=== PATIENT | female | born 1975 | race Caucasian/White ===

== ENCOUNTER → 2019-12-17 14:06 | Outpatient (CLI) | payer OTHER, MEDICAID, SELFPAY ==
[2019-12-17 14:40] LABS: Add Manual Diff / Slide Review NO; Basophils Absolute Auto 0 /uL (0-100); Basophils Percent Auto 0.8 % (0-2); Eosinophils Absolute Auto 0 /uL (0-450); Eosinophils Percent Auto 0.9 % (2-4); Hematocrit 37.4 % (36-46); Hemoglobin 12.9 g/dL (12.0-16.0); Lymphocytes Absolute Auto 1400 /uL (1100-4500); Lymphocytes Percent Auto 36.9 % (25-40); Mean Corpuscular HGB Conc 34.6 % (30-36); Mean Corpuscular Hemoglobin 34.2 PG (26-34); Mean Corpuscular Volume 98.9 fL (80-100); Monocytes Absolute Auto 600 /uL (0-900); Monocytes Percent Auto 14.1 % (3-14); Neutrophils Absolute Auto 1800 /uL (1500-7000); Neutrophils Percent Auto 47.3 % (50-75); Platelet Count 156 X10^3/uL (150-400); Red Blood Cell Count 3.79 X10^6/uL (4.0-5.2); Red Cell Distribution Width 13.6 % (11.6-14.8); White Blood Cell Count 3.9 X10^3/uL (4.5-11.0)
[2019-12-17 14:47] LABS: UR Morphine/Opiate cutoff 300 Negative (Negative); Ur Creatinine Normal (Normal); Ur Specific Gravity Normal (Normal); Urine Amphetamines Negative (Negative); Urine Barbiturates Negative (Negative); Urine Benzodiazepines Negative (Negative); Urine Cocaine Negative (Negative); Urine MDMA Negative (Negative); Urine Methadone Negative (Negative); Urine Methamphetamines Negative (Negative); Urine Oxycodone Negative (Negative); Urine Phencyclidine Negative (Negative); Urine Tetrahydrocannabinol Negative (Negative); Urine Tricyclic Antidepressant Negative (Negative); Urine pH Normal (Normal)
[2019-12-17 14:51] LABS: Alanine Aminotransferase 25 IU/L (<35); Albumin 4.6 g/dL (3.5-5.0); Albumin Globulin Ratio 1.6 (1.0-2.8); Alkaline Phosphatase 75 U/L (38-126); Aspartate Aminotransferase 56 IU/L (14-36); BUN Creatinine Ratio 5.3 (6-22); Bilirubin Total 0.6 mg/dL (0.2-1.3); Blood Urea Nitrogen 4 mg/dL (7-17); Calcium 10.4 mg/dL (8.4-10.2); Carbon Dioxide 28 mmol/L (22-32); Chloride 100 mmol/L (98-107); Creatine Kinase 67 U/L (30-135); Estimated Glomerular Filt Rate > 60.0 mL/min (>60); Globulin 2.9 g/dL (1.7-4.1); Glucose 103 mg/dL (70-100); HEMOLYSIS < 15 (0-50); Potassium 3.8 mmol/L (3.4-5.1); Sodium 135 mmol/L (137-145); Total Protein 7.5 g/dL (6.3-8.2)
[2019-12-17 15:20] LABS: Microalbumi Creatinin Ratio Ur 11.7 ug/mg CR (<30); Microalbumin Urine Random < 0.6 mg/dL (0-1.6)
[2019-12-17 16:09] LABS: Urine N gonorrhoeae NOT DETECTED
[2019-12-17 16:39] LABS: Urine Chlamydia NOT DETECTED
[2019-12-18 03:07] LABS: RPR Screen Non Reactive (Non Reactive)
[2019-12-18 03:38] LABS: HBsAg Screen Negative (Negative); Hepatitis A Antibody IgM Negative (Negative); Hepatitis B Core Antibody IgM Negative (Negative); Hepatitis C Antibody <0.1 s/co ratio (0.0-0.9)
[2019-12-18 08:08] LABS: HIV Ag/Ab, 4th Gen Non Reactive (Non Reactive)
== END ==
PROVIDERS: PCP Family Medicine; Referring Provider Family Medicine; Visit Provider Family Medicine
DX: Z13.1 Encounter for screening for diabetes mellitus (principal); D64.9 Anemia, unspecified; F17.200 Nicotine dependence, unspecified, uncomplicated; F19.90 Other psychoactive substance use, unspecified, uncomplicated; M62.82 Rhabdomyolysis; N28.9 Disorder of kidney and ureter, unspecified; R79.89 Other specified abnormal findings of blood chemistry; Z72.51 High risk heterosexual behavior
CPT/HCPCS: 36415; 80053; 80074; 80305; 82043; 82550; 82570; 85025; 86592; 87389; 87491; 87591

== ENCOUNTER → 2021-09-04 15:40 | Outpatient (CLI) | payer OTHER, MEDICAID, SELFPAY | PROVIDERS: PCP Family Medicine; Visit Provider Nurse Practitioner Family | DX: R30.0 Dysuria (principal) | CPT/HCPCS: 87086 ==

== ENCOUNTER 2021-09-04 16:18 | Emergency (ER) | payer OTHER, MEDICAID, SELFPAY ==
[2021-09-04] VITALS (17 sets, daily range): BP systolic 103–128; BP diastolic 66–79; PULSE 93–106; RESP 16–23; TEMP 37.4–39.4; O2SAT 95–100; BMI 22.1
--- NOTE | 2021-09-04 16:53 | ED.GENADULT ---
HPI - General Adult <Man Elizalde DO - Last Filed: 09/05/21 07:17> General Chief complaint: Urogenital-Female Stated complaint: KIDNEY PAIN UTI FEVER Time Seen by Provider: 09/04/21 16:41 Source: patient Mode of arrival: Wheelchair History of Present Illness HPI narrative: Patient is a 46-year-old female. Is here for evaluation of 3-4 days of burning with urination and frequency in right-sided flank pain. Is also having body aches and nausea. She has never had a urinary tract infection in the past. She states that she does have a new sexual partner over the past month. She denies any vaginal discharge. No vomiting. Was sent from the walk-in clinic for concerns of pyelonephritis. Related Data Previous Rx's Medication Instructions Recorded fluticasone propionate 110 2 puff INHALATION BID #12 gram 01/06/20 mcg/actuation HFA aerosol inhaler (Flovent HFA) mupirocin 2 % topical ointment 1 applic TOPICAL TID #30 g 05/01/20 triamcinolone acetonide 0.1 % 1 applic TOPICAL TID #80 g 05/08/20 topical cream permethrin 5 % topical cream See Rx Instructions TOPICAL ONCE 05/09/20 #120 g ondansetron 4 mg disintegrating 4 mg PO TID-QID PRN #10 tab 09/04/21 tablet oxycodone 5 mg tablet 5 mg PO Q4-6H PRN #10 tab 09/04/21 sulfamethoxazole 800 1 tab PO BID 14 Days #28 tab 09/04/21 mg-trimethoprim 160 mg tablet (Bactrim DS) Allergies Allergy/AdvReac Type Severity Reaction Status Date / Time lorazepam [From Ativan] Allergy Severe Anaphylaxis Verified 09/04/21 16:52 Penicillins Allergy Severe Anaphylaxis Verified 09/04/21 16:52 bacitracin Allergy Unknown Verified 09/04/21 16:51 [From Neosporin ([id number])] neomycin Allergy Unknown Verified 09/04/21 16:51 [From Neosporin ([id number])] polymyxin B Allergy Unknown Verified 09/04/21 16:51 [From Neosporin ([id number])] Review of Systems <Man Elizalde DO - Last Filed: 09/05/21 07:17> Review of Systems ROS Unobtainable: All systems reviewed & are unremarkable except as noted in HPI and below Patient History <Man Elizalde DO - Last Filed: 09/05/21 07:17> Medical History Asthma Skin rash Family History (Updated 01/11/20 @ 08:44 by Sonia Arriaga MD) Father Cancer Hypertension Grandfather Cancer Grandmother Cancer Mother Age: 63 Hepatitis C Cancer Grandfather Cancer Heart disease Grandmother Diabetes mellitus Hypertension Social History marital status: unmarried,single caregiver/support person: No Smoking Status: Current every day smoker quit status: not considering quitting second hand exposure: Yes alcohol intake: current Smoking Status: Current every day smoker alcohol intake frequency: 0-2 drinks per day Substance Use Type: does not use Exam <Man Elizalde DO - Last Filed: 09/05/21 07:17> Initial Vital Signs Initial Vital Signs: Vital Signs Temperature 101 F H 09/04/21 16:30 Pulse Rate 106 H 09/04/21 16:30 Respiratory Rate 20 09/04/21 16:30 Blood Pressure 128/78 09/04/21 16:30 Pulse Oximetry 96 09/04/21 16:30 Const General: cooperative, healthy appearing and comfortable HENMT Head: normal to inspection and normocephalic Resp Effort & Inspection: normal respiratory effort Auscultation: clear to auscultation bilaterally Cardio Rate: tachycardic Rhythm: regular rhythm GI Palpation: soft and tender Back/Spine/Pelvis Back: No CVA tenderness Other: Tenderness to palpation right lower paraspinal Skin General: no rashes or lesions noted Neuro General: patient alert, patient awake, patient oriented x3, gait normal and moves all extremities Cognition: normal cognition Speech: speech normal Gait: normal gait Motor: muscle tone normal throughout Extrem General: normal to inspection and capillary refill normal Psych Appearance: grossly normal and well kempt <Reed Gant DO - Last Filed: 09/04/21 22:35> Initial Vital Signs Initial Vital Signs: Vital Signs Temperature 101 F H 09/04/21 16:30 Pulse Rate 106 H 09/04/21 16:30 Respiratory Rate 20 09/04/21 16:30 Blood Pressure 128/78 09/04/21 16:30 Pulse Oximetry 96 09/04/21 16:30 Scores <Man Elizalde DO - Last Filed: 09/05/21 07:17> GCS [place] coma scale eye opening: Spontaneous [place]abel[place] coma scale verbal response: Orientated [place]abela coma scale motor response: Obey commands Anabela coma scale total score: 15 <Reed Gant DO - Last Filed: 09/04/21 22:35> GCS [place] coma scale total score: 15 Course <Man Elizalde DO - Last Filed: 09/05/21 07:17> Orders Ordered: Discontinued Medications Acetaminophen (Acetaminophen 325 Mg Tablet) 650 mg PO NOW ONE Stop: 09/04/21 17:04 Last Admin: 09/04/21 17:20 Dose: 650 mg Documented by: JAMILA Hydrocodone Bitart/Acetaminophen (Hydrocodone/Acet 5/325 Prepack) 1 bottle MISC SEEINSTR ONE Stop: 09/04/21 21:35 Last Admin: 09/04/21 21:45 Dose: 1 bottle Documented by: SUNDAY Sodium Chloride (Normal Saline 0.9%) 1,000 mls @ 1,000 mls/hr IV BOLUS ONE Stop: 09/04/21 17:46 Last Infusion: 09/04/21 18:58 Dose: 0 mls/hr Documented by: Admin: 09/04/21 17:20 Dose: 1,000 mls/hr Documented by: JAMILA Ceftriaxone Sodium 1,000 mg/ (Sodium Chloride) 100 mls @ 200 mls/hr IV NOW ONE Stop: 09/04/21 17:04 Last Infusion: 09/04/21 18:43 Dose: 0 mls/hr Documented by: Admin: 09/04/21 17:19 Dose: 200 mls/hr Documented by: JAMILA Ondansetron HCl (Ondansetron 4 Mg Odt Prepack) 1 bottle MISC SEEINSTR ONE Stop: 09/04/21 21:35 Last Admin: 09/04/21 21:45 Dose: 1 bottle Documented by: SUNDAY Vital Signs Vital signs: Vital Signs - 8 hr 09/04/21 16:30 09/04/21 17:20 09/04/21 17:45 Temperature 101 F H 103 F H Pulse Rate 106 H 103 H Respiratory Rate 20 20 Blood Pressure 128/78 Pulse Oximetry 96 99 09/04/21 17:46 09/04/21 18:00 09/04/21 18:30 Temperature Pulse Rate 104 H 99 H 103 H Respiratory Rate 16 21 23 Blood Pressure 112/79 119/78 117/66 Pulse Oximetry 99 100 95 09/04/21 18:47 09/04/21 19:00 09/04/21 19:01 Temperature Pulse Rate 102 H 104 H 104 H Respiratory Rate 22 Blood Pressure 103/73 112/66 Pulse Oximetry 99 98 98 09/04/21 19:07 09/04/21 19:30 09/04/21 20:00 Temperature 99.4 F Pulse Rate 93 H 93 H Respiratory Rate 21 Blood Pressure Pulse Oximetry 100 09/04/21 20:30 09/04/21 21:00 09/04/21 21:30 Temperature Pulse Rate 93 H 97 H 96 H Respiratory Rate 20 Blood Pressure Pulse Oximetry 09/04/21 21:34 09/04/21 21:46 Temperature Pulse Rate 100 H Respiratory Rate Blood Pressure 117/73 Pulse Oximetry <Reed Gant DO - Last Filed: 09/04/21 22:35> Orders Ordered: Discontinued Medications Acetaminophen (Acetaminophen 325 Mg Tablet) 650 mg PO NOW ONE Stop: 09/04/21 17:04 Last Admin: 09/04/21 17:20 Dose: 650 mg Documented by: JAMILA Hydrocodone Bitart/Acetaminophen (Hydrocodone/Acet 5/325 Prepack) 1 bottle MISC SEEINSTR ONE Stop: 09/04/21 21:35 Last Admin: 09/04/21 21:45 Dose: 1 bottle Documented by: SUNDAY Sodium Chloride (Normal Saline 0.9%) 1,000 mls @ 1,000 mls/hr IV BOLUS ONE Stop: 09/04/21 17:46 Last Infusion: 09/04/21 18:58 Dose: 0 mls/hr Documented by: Admin: 09/04/21 17:20 Dose: 1,000 mls/hr Documented by: JAMILA Ceftriaxone Sodium 1,000 mg/ (Sodium Chloride) 100 mls @ 200 mls/hr IV NOW ONE Stop: 09/04/21 17:04 Last Infusion: 09/04/21 18:43 Dose: 0 mls/hr Documented by: Admin: 09/04/21 17:19 Dose: 200 mls/hr Documented by: JAMILA Ondansetron HCl (Ondansetron 4 Mg Odt Prepack) 1 bottle MISC SEEINSTR ONE Stop: 09/04/21 21:35 Last Admin: 09/04/21 21:45 Dose: 1 bottle Documented by: SUNDAY Vital Signs Vital signs: Vital Signs - 8 hr 09/04/21 16:30 09/04/21 17:20 09/04/21 17:45 Temperature 101 F H 103 F H Pulse Rate 106 H 103 H Respiratory Rate 20 20 Blood Pressure 128/78 Pulse Oximetry 96 99 09/04/21 17:46 09/04/21 18:00 09/04/21 18:30 Temperature Pulse Rate 104 H 99 H 103 H Respiratory Rate 16 21 23 Blood Pressure 112/79 119/78 117/66 Pulse Oximetry 99 100 95 09/04/21 18:47 09/04/21 19:00 09/04/21 19:01 Temperature Pulse Rate 102 H 104 H 104 H Respiratory Rate 22 Blood Pressure 103/73 112/66 Pulse Oximetry 99 98 98 09/04/21 19:07 09/04/21 19:30 09/04/21 20:00 Temperature 99.4 F Pulse Rate 93 H 93 H Respiratory Rate 21 Blood Pressure Pulse Oximetry 100 09/04/21 20:30 09/04/21 21:00 09/04/21 21:30 Temperature Pulse Rate 93 H 97 H 96 H Respiratory Rate 20 Blood Pressure Pulse Oximetry 09/04/21 21:34 09/04/21 21:46 Temperature Pulse Rate 100 H Respiratory Rate Blood Pressure 117/73 Pulse Oximetry Medical Decision Making <Man Elizalde, - Last Filed: 09/05/21 07:17> Lab Data Lab results reviewed: Yes I reviewed the patient's lab results. Result diagrams: 09/04/21 16:55 09/04/21 16:55 Labs: Lab Results 09/04/21 09/04/21 09/04/21 Range/Units 16:55 16:55 16:55 WBC 13.8 H (4.5-11.0) X10^3/uL RBC 3.85 L (4.0-5.2) X10^6/uL Hgb 12.4 (12.0-16.0) g/dL Hct 35.6 L (36-46) % MCV 92.6 (80-100) fL MCH 32.2 (26-34) PG MCHC 34.8 (30-36) % RDW 13.1 (11.6-14.8) % Plt Count 223 (150-400) X10^3/uL Neut % (Auto) 82.6 H (50-75) % Lymph % (Auto) 5.3 L (25-40) % [place] % (Auto) 11.6 (3-14) % Eos % (Auto) 0.0 L (2-4) % Baso % (Auto) 0.5 (0-2) % Neut # (Auto) 03673 H (9772-1171) /uL Lymph # (Auto) 700 L (1736-4736) /uL [place] # (Auto) 1600 H (0-900) /uL Eos # (Auto) 0 (0-450) /uL Baso # (Auto) 100 (0-100) /uL Sodium 130 L (137-145) mmol/L Potassium 3.7 (3.4-5.1) mmol/L Chloride 100 (98-107) mmol/L Carbon Dioxide 24 (22-32) mmol/L BUN 9 (7-17) mg/dL Creatinine 0.67 (0.52-1.04) mg/dL Estimated GFR > 60.0 (>60) mL/min BUN/Creatinine Ratio 13.4 (6-22) Glucose 113 H (70-100) mg/dL Lactate 0.6 L (0.7-2.1) mmol/L Calcium 9.1 (8.4-10.2) mg/dL Total Bilirubin 0.8 (0.2-1.3) mg/dL AST 26 (14-36) IU/L ALT 16 (<35) IU/L Alkaline Phosphatase 83 (38-126) U/L Total Protein 7.1 (6.3-8.2) g/dL Albumin 4.1 (3.5-5.0) g/dL Globulin 3.0 (1.7-4.1) g/dL Albumin/Globulin Ratio 1.4 (1.0-2.8) Lipase 58 (23-300) U/L Procalcitonin 0.13 (<0.5) ng/mL Serum , Qual (Negative) Urine RBC Urine WBC Ur Squamous Epith Cells Ur Transition Epith Cell Ur Renal Epithelial Cell Calcium Oxalate Crystal Uric Acid Crystals Triple Phos Crystals Other Crystals Amorphous Sediment Urine Bacteria Hyaline Casts Granular Casts RBC Casts WBC Casts Other Casts Urine Mucus Urine Trichomonas Urine Yeast Urine Sperm Ur Culture Indicated? Micro UA Comment Ur Chlamydia DNA (PCR) HIV 1&2 Ab/P24 Ag 4thGn (NEGATIVE) N gonorrhoeae DNA (PCR) 09/04/21 09/04/21 09/04/21 Range/Units 16:55 16:55 17:37 WBC (4.5-11.0) X10^3/uL RBC (4.0-5.2) X10^6/uL Hgb (12.0-16.0) g/dL Hct (36-46) % MCV (80-100) fL MCH (26-34) PG MCHC (30-36) % RDW (11.6-14.8) % Plt Count (150-400) X10^3/uL Neut % (Auto) (50-75) % Lymph % (Auto) (25-40) % [place] % (Auto) (3-14) % Eos % (Auto) (2-4) % Baso % (Auto) (0-2) % Neut # (Auto) (6091-9695) /uL Lymph # (Auto) (7463-7041) /uL [place] # (Auto) (0-900) /uL Eos # (Auto) (0-450) /uL Baso # (Auto) (0-100) /uL Sodium (137-145) mmol/L Potassium (3.4-5.1) mmol/L Chloride (98-107) mmol/L Carbon Dioxide (22-32) mmol/L BUN (7-17) mg/dL Creatinine (0.52-1.04) mg/dL Estimated GFR (>60) mL/min BUN/Creatinine Ratio (6-22) Glucose (70-100) mg/dL Lactate (0.7-2.1) mmol/L Calcium (8.4-10.2) mg/dL Total Bilirubin (0.2-1.3) mg/dL AST (14-36) IU/L ALT (<35) IU/L Alkaline Phosphatase (38-126) U/L Total Protein (6.3-8.2) g/dL Albumin (3.5-5.0) g/dL Globulin (1.7-4.1) g/dL Albumin/Globulin Ratio (1.0-2.8) Lipase (23-300) U/L Procalcitonin (<0.5) ng/mL Serum , Qual Negative (Negative) Urine RBC Urine WBC Ur Squamous Epith Cells Ur Transition Epith Cell Ur Renal Epithelial Cell Calcium Oxalate Crystal Uric Acid Crystals Triple Phos Crystals Other Crystals Amorphous Sediment Urine Bacteria Hyaline Casts Granular Casts RBC Casts WBC Casts Other Casts Urine Mucus Urine Trichomonas Urine Yeast Urine Sperm Ur Culture Indicated? Micro UA Comment Ur Chlamydia DNA (PCR) Not detected HIV 1&2 Ab/P24 Ag 4thGn Negative (NEGATIVE) N gonorrhoeae DNA (PCR) Not detected 09/04/21 09/04/21 Range/Units 17:38 19:17 WBC (4.5-11.0) X10^3/uL RBC (4.0-5.2) X10^6/uL Hgb (12.0-16.0) g/dL Hct (36-46) % MCV (80-100) fL MCH (26-34) PG MCHC (30-36) % RDW (11.6-14.8) % Plt Count (150-400) X10^3/uL Neut % (Auto) (50-75) % Lymph % (Auto) (25-40) % [place] % (Auto) (3-14) % Eos % (Auto) (2-4) % Baso % (Auto) (0-2) % Neut # (Auto) (9956-9318) /uL Lymph # (Auto) (3629-9829) /uL [place] # (Auto) (0-900) /uL Eos # (Auto) (0-450) /uL Baso # (Auto) (0-100) /uL Sodium (137-145) mmol/L Potassium (3.4-5.1) mmol/L Chloride (98-107) mmol/L Carbon Dioxide (22-32) mmol/L BUN (7-17) mg/dL Creatinine (0.52-1.04) mg/dL Estimated GFR (>60) mL/min BUN/Creatinine Ratio (6-22) Glucose (70-100) mg/dL Lactate (0.7-2.1) mmol/L Calcium (8.4-10.2) mg/dL Total Bilirubin (0.2-1.3) mg/dL AST (14-36) IU/L ALT (<35) IU/L Alkaline Phosphatase (38-126) U/L Total Protein (6.3-8.2) g/dL Albumin (3.5-5.0) g/dL Globulin (1.7-4.1) g/dL Albumin/Globulin Ratio (1.0-2.8) Lipase (23-300) U/L Procalcitonin (<0.5) ng/mL Serum , Qual (Negative) Urine RBC Cancelled 1-5/hpf Urine WBC Cancelled 10-30/hpf H Ur Squamous Epith Cells Cancelled 1-5 /hpf Ur Transition Epith Cell Cancelled Ur Renal Epithelial Cell Cancelled Calcium Oxalate Crystal Cancelled Uric Acid Crystals Cancelled Triple Phos Crystals Cancelled Other Crystals Cancelled Amorphous Sediment Cancelled Urine Bacteria Cancelled None seen Hyaline Casts Cancelled Granular Casts Cancelled RBC Casts Cancelled WBC Casts Cancelled Other Casts Cancelled Urine Mucus Cancelled Urine Trichomonas Cancelled Urine Yeast Cancelled Urine Sperm Cancelled Ur Culture Indicated? Cancelled Culture not indicate Micro UA Comment Cancelled Ur Chlamydia DNA (PCR) HIV 1&2 Ab/P24 Ag 4thGn (NEGATIVE) N gonorrhoeae DNA (PCR) Point of Care Testing Test Results Negative Urine Dip Bedside Urine Glucose Negative Bedside Urine Bilirubin - Negative Bedside Urine Ketone - Negative Urine Specific [place] 1.005 Bedside Urine Occult Blood ++ Bedside Urine pH 6.5 Bedside Urine Protein +/- 15 Bedside Urine Urobilinogen - Negative Bedside Urine Nitrite - Negative Bedside Urine Leukocytes ++ 125 Esterase Point of care testing: Point of Care Testing Test Results Negative Urine Dip Bedside Urine Glucose Negative Bedside Urine Bilirubin - Negative Bedside Urine Ketone - Negative Urine Specific [place] 1.005 Bedside Urine Occult Blood ++ Bedside Urine pH 6.5 Bedside Urine Protein +/- 15 Bedside Urine Urobilinogen - Negative Bedside Urine Nitrite - Negative Bedside Urine Leukocytes ++ 125 Esterase MDM Narrative Medical decision making narrative: Patient did arrive tachycardic and febrile. Has leukocytosis. Urinalysis is nitrite positive consistent with the urinary tract infection. Started having abdominal discomfort here in the ER. Patient is also concerned about GC and chlamydia which was subsequently negative. She is also concerned about HIV. Patient is tolerating oral intake. Was given Rocephin. Was not hypotensive. 30 cc/kilogram of fluid was not administered secondary to this. Patient does require oral antibiotics for pyelonephritis. Patient turned over to Dr. Gant to follow-up on CT scan result and HIV result prior to discharge. <Reed Gant, DO - Last Filed: 09/04/21 22:35> Lab Data Labs: Lab Results 09/04/21 09/04/21 09/04/21 Range/Units 16:55 16:55 16:55 WBC 13.8 H (4.5-11.0) X10^3/uL RBC 3.85 L (4.0-5.2) X10^6/uL Hgb 12.4 (12.0-16.0) g/dL Hct 35.6 L (36-46) % MCV 92.6 (80-100) fL MCH 32.2 (26-34) PG MCHC 34.8 (30-36) % RDW 13.1 (11.6-14.8) % Plt Count 223 (150-400) X10^3/uL Neut % (Auto) 82.6 H (50-75) % Lymph % (Auto) 5.3 L (25-40) % [place] % (Auto) 11.6 (3-14) % Eos % (Auto) 0.0 L (2-4) % Baso % (Auto) 0.5 (0-2) % Neut # (Auto) 83294 H (8457-8906) /uL Lymph # (Auto) 700 L (4997-9079) /uL [place] # (Auto) 1600 H (0-900) /uL Eos # (Auto) 0 (0-450) /uL Baso # (Auto) 100 (0-100) /uL Sodium 130 L (137-145) mmol/L Potassium 3.7 (3.4-5.1) mmol/L Chloride 100 (98-107) mmol/L Carbon Dioxide 24 (22-32) mmol/L BUN 9 (7-17) mg/dL Creatinine 0.67 (0.52-1.04) mg/dL Estimated GFR > 60.0 (>60) mL/min BUN/Creatinine Ratio 13.4 (6-22) Glucose 113 H (70-100) mg/dL Lactate 0.6 L (0.7-2.1) mmol/L Calcium 9.1 (8.4-10.2) mg/dL Total Bilirubin 0.8 (0.2-1.3) mg/dL AST 26 (14-36) IU/L ALT 16 (<35) IU/L Alkaline Phosphatase 83 (38-126) U/L Total Protein 7.1 (6.3-8.2) g/dL Albumin 4.1 (3.5-5.0) g/dL Globulin 3.0 (1.7-4.1) g/dL Albumin/Globulin Ratio 1.4 (1.0-2.8) Lipase 58 (23-300) U/L Procalcitonin 0.13 (<0.5) ng/mL Serum , Qual (Negative) Urine RBC Urine WBC Ur Squamous Epith Cells Ur Transition Epith Cell Ur Renal Epithelial Cell Calcium Oxalate Crystal Uric Acid Crystals Triple Phos Crystals Other Crystals Amorphous Sediment Urine Bacteria Hyaline Casts Granular Casts RBC Casts WBC Casts Other Casts Urine Mucus Urine Trichomonas Urine Yeast Urine Sperm Ur Culture Indicated? Micro UA Comment Ur Chlamydia DNA (PCR) HIV 1&2 Ab/P24 Ag 4thGn (NEGATIVE) N gonorrhoeae DNA (PCR) 09/04/21 09/04/21 09/04/21 Range/Units 16:55 16:55 17:37 WBC (4.5-11.0) X10^3/uL RBC (4.0-5.2) X10^6/uL Hgb (12.0-16.0) g/dL Hct (36-46) % MCV (80-100) fL MCH (26-34) PG MCHC (30-36) % RDW (11.6-14.8) % Plt Count (150-400) X10^3/uL Neut % (Auto) (50-75) % Lymph % (Auto) (25-40) % [place] % (Auto) (3-14) % Eos % (Auto) (2-4) % Baso % (Auto) (0-2) % Neut # (Auto) (0012-5662) /uL Lymph # (Auto) (3299-4311) /uL [place] # (Auto) (0-900) /uL Eos # (Auto) (0-450) /uL Baso # (Auto) (0-100) /uL Sodium (137-145) mmol/L Potassium (3.4-5.1) mmol/L Chloride (98-107) mmol/L Carbon Dioxide (22-32) mmol/L BUN (7-17) mg/dL Creatinine (0.52-1.04) mg/dL Estimated GFR (>60) mL/min BUN/Creatinine Ratio (6-22) Glucose (70-100) mg/dL Lactate (0.7-2.1) mmol/L Calcium (8.4-10.2) mg/dL Total Bilirubin (0.2-1.3) mg/dL AST (14-36) IU/L ALT (<35) IU/L Alkaline Phosphatase (38-126) U/L Total Protein (6.3-8.2) g/dL Albumin (3.5-5.0) g/dL Globulin (1.7-4.1) g/dL Albumin/Globulin Ratio (1.0-2.8) Lipase (23-300) U/L Procalcitonin (<0.5) ng/mL Serum , Qual Negative (Negative) Urine RBC Urine WBC Ur Squamous Epith Cells Ur Transition Epith Cell Ur Renal Epithelial Cell Calcium Oxalate Crystal Uric Acid Crystals Triple Phos Crystals Other Crystals Amorphous Sediment Urine Bacteria Hyaline Casts Granular Casts RBC Casts WBC Casts Other Casts Urine Mucus Urine Trichomonas Urine Yeast Urine Sperm Ur Culture Indicated? Micro UA Comment Ur Chlamydia DNA (PCR) Not detected HIV 1&2 Ab/P24 Ag 4thGn Negative (NEGATIVE) N gonorrhoeae DNA (PCR) Not detected 09/04/21 09/04/21 Range/Units 17:38 19:17 WBC (4.5-11.0) X10^3/uL RBC (4.0-5.2) X10^6/uL Hgb (12.0-16.0) g/dL Hct (36-46) % MCV (80-100) fL MCH (26-34) PG MCHC (30-36) % RDW (11.6-14.8) % Plt Count (150-400) X10^3/uL Neut % (Auto) (50-75) % Lymph % (Auto) (25-40) % [place] % (Auto) (3-14) % Eos % (Auto) (2-4) % Baso % (Auto) (0-2) % Neut # (Auto) (1000-5648) /uL Lymph # (Auto) (6001-2476) /uL [place] # (Auto) (0-900) /uL Eos # (Auto) (0-450) /uL Baso # (Auto) (0-100) /uL Sodium (137-145) mmol/L Potassium (3.4-5.1) mmol/L Chloride (98-107) mmol/L Carbon Dioxide (22-32) mmol/L BUN (7-17) mg/dL Creatinine (0.52-1.04) mg/dL Estimated GFR (>60) mL/min BUN/Creatinine Ratio (6-22) Glucose (70-100) mg/dL Lactate (0.7-2.1) mmol/L Calcium (8.4-10.2) mg/dL Total Bilirubin (0.2-1.3) mg/dL AST (14-36) IU/L ALT (<35) IU/L Alkaline Phosphatase (38-126) U/L Total Protein (6.3-8.2) g/dL Albumin (3.5-5.0) g/dL Globulin (1.7-4.1) g/dL Albumin/Globulin Ratio (1.0-2.8) Lipase (23-300) U/L Procalcitonin (<0.5) ng/mL Serum , Qual (Negative) Urine RBC Cancelled 1-5/hpf Urine WBC Cancelled 10-30/hpf H Ur Squamous Epith Cells Cancelled 1-5 /hpf Ur Transition Epith Cell Cancelled Ur Renal Epithelial Cell Cancelled Calcium Oxalate Crystal Cancelled Uric Acid Crystals Cancelled Triple Phos Crystals Cancelled Other Crystals Cancelled Amorphous Sediment Cancelled Urine Bacteria Cancelled None seen Hyaline Casts Cancelled Granular Casts Cancelled RBC Casts Cancelled WBC Casts Cancelled Other Casts Cancelled Urine Mucus Cancelled Urine Trichomonas Cancelled Urine Yeast Cancelled Urine Sperm Cancelled Ur Culture Indicated? Cancelled Culture not indicate Micro UA Comment Cancelled Ur Chlamydia DNA (PCR) HIV 1&2 Ab/P24 Ag 4thGn (NEGATIVE) N gonorrhoeae DNA (PCR) Point of Care Testing Test Results Negative Urine Dip Bedside Urine Glucose Negative Bedside Urine Bilirubin - Negative Bedside Urine Ketone - Negative Urine Specific [place] 1.005 Bedside Urine Occult Blood ++ Bedside Urine pH 6.5 Bedside Urine Protein +/- 15 Bedside Urine Urobilinogen - Negative Bedside Urine Nitrite - Negative Bedside Urine Leukocytes ++ 125 Esterase Point of care testing: Point of Care Testing Test Results Negative Urine Dip Bedside Urine Glucose Negative Bedside Urine Bilirubin - Negative Bedside Urine Ketone - Negative Urine Specific [place] 1.005 Bedside Urine Occult Blood ++ Bedside Urine pH 6.5 Bedside Urine Protein +/- 15 Bedside Urine Urobilinogen - Negative Bedside Urine Nitrite - Negative Bedside Urine Leukocytes ++ [address] scan - abdomen/pelvis: Radiologist's Impression: Launch?[place] [address] CT Scan Report Signed Patient: Saranya Antonio MR#: [id number] : 1975 Acct:[id number] Age/Sex: 46 / F Date of Service: 09/04/21 Loc: ED Accession Number: [id number] ?? Procedure: CT abdomen pelvis w con Ordering Provider: Man Elizalde D.O. PROCEDURE:? CT ABDOMEN PELVIS W CON ? INDICATIONS:? Lower abdomen pain ? TECHNIQUE:? After the administration of oral and IV contrast, axial sections were acquired from the lung bases to the pubic symphysis.? Coronal and sagittal reformats were performed.? For radiation dose reduction, the following was used:? automated exposure control, adjustment of mA and/or kV according to patient size. ? COMPARISON:? Outside Facility, , CT ABDOMEN/PELVIS WITHOUT CONTRAST, 09/28/2019, 16:23. ? FINDINGS:? Image quality:? Excellent.? ? Lung bases:? Unremarkable.? ? Heart:? Heart is normal in size. ? ? ABDOMEN: Liver:? There is a mass lesion in the right hepatic lobe measuring up to approximately 2.7 x 2.4 cm in transverse dimension.? There is eccentric hypervascular discontinuous enhancement suggestive of a hemangioma. Gallbladder:? Within normal limits without calcified gallstones.? ? Biliary ducts:? No biliary ductal dilatation.? ? Pancreas:? Unremarkable.? ? Spleen:? Normal in size.? ? Adrenal Glands:? No adrenal nodules.? ? Kidneys and Ureters:? No hydronephrosis.? There is heterogeneous enhancement within the kidneys.? There is mild urothelial thickening and enhancement within the renal collecting systems and ureters bilaterally with associated mild perinephric and periureteral fat stranding.? ? ? Stomach and Bowel:? There is mild segmental wall thickening within the descending portion of the duodenum and a few segments within the jejunum suggestive of a mild enteritis.? No pericecal inflammatory changes to suggest appendicitis.? Colon demonstrates normal caliber and wall thickness.? Peritoneum:? There is minimal free fluid in the pelvis.? No free air.? ? Ventral Wall: ? No hernia.? Abdominal Nodes:? No retroperitoneal or mesenteric adenopathy by size criteria.? Vessels:? Aorta and inferior vena cava are normal in size.? ? PELVIS: Pelvic Organs:? There is a small amount of endometrial fluid within the uterus which appears within normal limits for age.? ? Bladder:? Unremarkable.? ? Pelvic Nodes: No enlarged lymph nodes.? Miscellaneous: No inguinal hernias are seen. ? ? ? Bones:? Visualized osseous structures demonstrate no suspicious focal lesions. ? IMPRESSION:? ? 1. Heterogeneous enhancement of the kidneys, right greater than left, suggestive of pyelonephritis. ? 2. Bilateral mild urothelial thickening and enhancement with mild perinephric and periureteral fat stranding.? Findings are suggestive of a urinary tract infection.? No evidence of hydronephrosis. ? 3. Right hepatic mass with eccentric hypervascular discontinuous enhancement suggestive of a hemangioma.? Recommend further evaluation with a liver protocol MRI or CT.? ? Dictated by: Rhys Calderón M.D. on 09/04/2021 at 20:58 ? ? Approved by: Rhys Calderón M.D. on 09/04/2021 at 21:11 ? Discharge Plan Departure Patient Disposition: Home Clinical Impression: Pyelonephritis Instructions: Kidney Infection Activity Restrictions/Additional Instructions: A prescription for antibiotics was transmitted to safely. Please start taking them as directed. Contact your primary doctor for a follow-up. Return to the emergency department for any new or worsening symptoms. As we discussed there is a small mass on your liver, which was incidentally noted on the CT. I called the radiologist who suggests that it was likely there previously on prior non-contrasted CTs, but should be followed as an outpatient with a dedicated Liver CT or MRI which Dr. Arriaga can help you with. You have been prescribed a short course of narcotic medications. These are potentially dangerous and addictive medications that should be used carefully. While on these medications you cannot drive or operate heavy machinery. Additionally, you cannot sign legal documents or perform any duties such as this. 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 Please understand that we cannot provide further refills of narcotics or controlled substances through the ED and your pain management will need to be through your Primary Care Provider Prescriptions: New sulfamethoxazole-trimethoprim [Bactrim DS] 800-160 mg tablet 1 tab PO BID 14 Days Qty: 28 0RF oxycodone 5 mg tablet 5 mg PO Q4-6H PRN (Reason: pain) Qty: 10 0RF ondansetron 4 mg tablet,disintegrating 4 mg PO TID-QID PRN (Reason: nausea and vomiting) Qty: 10 0RF No Action mupirocin 2 % ointment 1 applic topical TID Qty: 30 0RF Flovent HFA 110 mcg/actuation HFA aerosol inhaler 2 puff INHALATION BID Qty: 12 3RF Rx Instructions: Inhale 2 puffs twice daily after Albuterol for 2 weeks, then decrease to one puff twice daily thereafter triamcinolone acetonide 0.1 % cream 1 applic topical TID Qty: 80 0RF permethrin 5 % cream See Rx Instructions topical ONCE Qty: 120 0RF Rx Instructions: apply as directed today to entire body and head topical once Referrals: Sonia Arriaga MD [Primary Care Provider] -
[2021-09-04 17:05] LABS: Add Manual Diff / Slide Review NO; Basophils Absolute Auto 100 /uL (0-100); Basophils Percent Auto 0.5 % (0-2); Eosinophils Absolute Auto 0 /uL (0-450); Hematocrit 35.6 % (36-46); Hemoglobin 12.4 g/dL (12.0-16.0); Lymphocytes Absolute Auto 700 /uL (1100-4500); Lymphocytes Percent Auto 5.3 % (25-40); Mean Corpuscular HGB Conc 34.8 % (30-36); Mean Corpuscular Hemoglobin 32.2 PG (26-34); Mean Corpuscular Volume 92.6 fL (80-100); Monocytes Absolute Auto 1600 /uL (0-900); Monocytes Percent Auto 11.6 % (3-14); Neutrophils Absolute Auto 11400 /uL (1500-7000); Neutrophils Percent Auto 82.6 % (50-75); Platelet Count 223 X10^3/uL (150-400); Red Blood Cell Count 3.85 X10^6/uL (4.0-5.2); Red Cell Distribution Width 13.1 % (11.6-14.8); White Blood Cell Count 13.8 X10^3/uL (4.5-11.0)
[2021-09-04 17:18] LABS: Alanine Aminotransferase 16 IU/L (<35); Albumin 4.1 g/dL (3.5-5.0); Albumin Globulin Ratio 1.4 (1.0-2.8); Alkaline Phosphatase 83 U/L (38-126); Aspartate Aminotransferase 26 IU/L (14-36); BUN Creatinine Ratio 13.4 (6-22); Bilirubin Total 0.8 mg/dL (0.2-1.3); Blood Urea Nitrogen 9 mg/dL (7-17); Calcium 9.1 mg/dL (8.4-10.2); Carbon Dioxide 24 mmol/L (22-32); Chloride 100 mmol/L (98-107); Estimated Glomerular Filt Rate > 60.0 mL/min (>60); Glucose 113 mg/dL (70-100); HEMOLYSIS < 15 (0-50); Lactate (Lactic Acid) 0.6 mmol/L (0.7-2.1); Lipase 58 U/L (23-300); Potassium 3.7 mmol/L (3.4-5.1); Sodium 130 mmol/L (137-145); Total Protein 7.1 g/dL (6.3-8.2)
[2021-09-04] MEDS: cefTRIAXone 1,000 MG in SODIUM CHLORIDE 0.9% 100 ML 200 ML IV (17:19)
[2021-09-04] MEDS: SODIUM CHLORIDE 0.9% 1,000 ML 1000 ML IV (17:20)
[2021-09-04] MEDS: ACETAMINOPHEN 325 MG TABLET 650 MG PO (17:20)
[2021-09-04 17:34] LABS: Procalcitonin 0.13 ng/mL (<0.5)
--- NOTE | 2021-09-04 18:59 | DI.CT.S_ITS ---
PROCEDURE: CT ABDOMEN PELVIS W CON INDICATIONS: Lower abdomen pain TECHNIQUE: After the administration of oral and IV contrast, axial sections were acquired from the lung bases to the pubic symphysis. Coronal and sagittal reformats were performed. For radiation dose reduction, the following was used: automated exposure control, adjustment of mA and/or kV according to patient size. COMPARISON: Outside Facility, RG, CT ABDOMEN/PELVIS WITHOUT CONTRAST, 09/28/2019, 16:23. FINDINGS: Image quality: Excellent. Lung bases: Unremarkable. Heart: Heart is normal in size. ABDOMEN: Liver: There is a mass lesion in the right hepatic lobe measuring up to approximately 2.7 x 2.4 cm in transverse dimension. There is eccentric hypervascular discontinuous enhancement suggestive of a hemangioma. Gallbladder: Within normal limits without calcified gallstones. Biliary ducts: No biliary ductal dilatation. Pancreas: Unremarkable. Spleen: Normal in size. Adrenal Glands: No adrenal nodules. Kidneys and Ureters: No hydronephrosis. There is heterogeneous enhancement within the kidneys. There is mild urothelial thickening and enhancement within the renal collecting systems and ureters bilaterally with associated mild perinephric and periureteral fat stranding. Stomach and Bowel: There is mild segmental wall thickening within the descending portion of the duodenum and a few segments within the jejunum suggestive of a mild enteritis. No pericecal inflammatory changes to suggest appendicitis. Colon demonstrates normal caliber and wall thickness. Peritoneum: There is minimal free fluid in the pelvis. No free air. Ventral Wall: No hernia. Abdominal Nodes: No retroperitoneal or mesenteric adenopathy by size criteria. Vessels: Aorta and inferior vena cava are normal in size. PELVIS: Pelvic Organs: There is a small amount of endometrial fluid within the uterus which appears within normal limits for age. Bladder: Unremarkable. Pelvic Nodes: No enlarged lymph nodes. Miscellaneous: No inguinal hernias are seen. Bones: Visualized osseous structures demonstrate no suspicious focal lesions. IMPRESSION: 1. Heterogeneous enhancement of the kidneys, right greater than left, suggestive of pyelonephritis. 2. Bilateral mild urothelial thickening and enhancement with mild perinephric and periureteral fat stranding. Findings are suggestive of a urinary tract infection. No evidence of hydronephrosis. 3. Right hepatic mass with eccentric hypervascular discontinuous enhancement suggestive of a hemangioma. Recommend further evaluation with a liver protocol MRI or CT. Dictated by: Rhys Calderón M.D. on 09/04/2021 at 20:58 Approved by: Rhys Calderón M.D. on 09/04/2021 at 21:11
[2021-09-04 19:11] LABS: Urine N gonorrhoeae NOT DETECTED
[2021-09-04 19:17] LABS: Urine Chlamydia NOT DETECTED
[2021-09-04 19:38] LABS: Pregnancy Test Serum,Qual Negative (Negative)
[2021-09-04 19:51] LABS: Bacteria Urine None Seen; Squamous Epithelial Cell Urine 1-5 /HPF (0-5/HPF); WBC Urine 10-30/HPF (0-5/HPF)
[2021-09-04 19:52] LABS: RBC Urine 1-5/HPF (0-5/HPF)
[2021-09-04 20:20] LABS: HIV 1 & 2 Ab/Ag 4th Gen Combo NEGATIVE (NEGATIVE)
[2021-09-04] MEDS: ONDANSETRON 4 MG ODT PREPACK 1 BOTTLE MISC (21:45)
[2021-09-04] MEDS: HYDROCODONE/ACET 5/325 PREPACK 1 BOTTLE MISC (21:45)
[2021-09-05 09:22] LABS: Enterococcus species Not Detected (Not Detect); Listeria monocytogenes Not Detected (Not Detect); Staphylococcus species Not Detected (Not Detect)
[2021-09-05 09:23] LABS: Acinetobacter baumannii Not Detected (Not Detect); Candida albicans Not Detected (Not Detect); Candida glabrata Not Detected (Not Detect); Candida krusei Not Detected (Not Detect); Candida parapsilosis Not Detected (Not Detect); Candida tropicalis Not Detected (Not Detect); E. coli Detected (Not Detect); Enterobacter cloacae complex Not Detected (Not Detect); Enterobacteriaceae species Detected (Not Detect); Haemophilus influenzae Not Detected (Not Detect); KPC (carbapenem-resist gene) Not Detected (Not Detect); Neisseria meningitidis Not Detected (Not Detect); Proteus species Not Detected (Not Detect); Pseudomonas aeruginosa Not Detected (Not Detect); Serratia marcescens Not Detected (Not Detect); Streptococcus agalactiae (Gr B Not Detected (Not Detect); Streptococcus pneumonia Not Detected (Not Detect); Streptococcus pyogenes (Gr A) Not Detected (Not Detect); Streptococcus species Not Detected (Not Detect)
== END 2021-09-04 21:45 | disposition home or self-care (01) ==
PROVIDERS: Emergency Medicine; Emergency Provider Emergency Medicine; PCP Family Medicine
DX: N12 Tubulo-interstitial nephritis, not specified as acute or chronic (principal); B96.20 Unspecified Escherichia coli [E. coli] as the cause of diseases classified elsewhere; Z88.0 Allergy status to penicillin; F17.200 Nicotine dependence, unspecified, uncomplicated; R30.0 Dysuria
CPT/HCPCS: 36415; 74177; 80053; 81003; 81015; 81025; 83605; 83690; 84145; 84703; 85025; 87040; 87077; 87086; 87150; 87186; 87205; 87389; 87491; 87591; 96365; 99284; J0696; Q9967

== ENCOUNTER 2022-12-30 20:10 | Emergency (ER) | payer SELFPAY ==
[2022-12-30 20:13] VITALS: BP 139/88; PULSE 89; RESP 18; TEMP 36.3; O2SAT 100; BMI 22.1
== END 2022-12-30 23:54 | disposition left against medical advice (07) ==
PROVIDERS: Emergency Provider Emergency Medicine; PCP Family Medicine
CPT/HCPCS: 99281

== ENCOUNTER 2023-01-16 14:15 | Emergency (ER) | payer SELFPAY ==
[2023-01-16 14:19] VITALS: BP 123/67; PULSE 86; RESP 18; TEMP 36.9; O2SAT 98; BMI 23.0
--- NOTE | 2023-01-16 14:46 | ED.EYEPROB ---
HPI - Eye Problem <Rakel Arriaga PA-C - Last Filed: 01/16/23 16:45> General Chief complaint: Eye Problems Stated complaint: something going on with skin and eyes Time Seen by Provider: 01/16/23 14:37 Source: patient Mode of arrival: Ambulatory History of Present Illness HPI Narrative: Patient is a 47-year-old female who presents with right eye pain and concern that she is infected with parasites. She reports a history of a corneal ulcer in the right eye about 1 year ago that resolved after treatment, it seems she was seen at [facility] for that. Approximately 2 weeks ago she noted her right eye was bothering her again. Her eye is itchy and feels like there is a thick film that clouds her vision, although she reports 20/20 vision out of that eye after her ulcer healed. She also endorses itchy rash on her scalp and her eyebrows and all over her body. She endorses feeling like she has parasites in her sinuses and nose as well and can feel them moving. She has previously completed multiple rounds of permethrin for suspected scabies. She denies fever or chills, unintentional weight loss, abdominal pain, diarrhea. Related Data Previous Rx's Medication Instructions Recorded fluticasone propionate 110 2 puff inhalation BID #12 grams 01/06/20 mcg/actuation HFA aerosol inhaler (Flovent HFA) mupirocin 2 % topical ointment 1 applic topical TID #30 grams 05/01/20 triamcinolone acetonide 0.1 % 1 applic topical TID #80 grams 05/08/20 topical cream permethrin 5 % topical cream See Rx Instructions topical ONCE 05/09/20 #120 grams ondansetron 4 mg disintegrating 4 mg PO TID-QID PRN nausea and 09/04/21 tablet vomiting #10 tabs oxycodone 5 mg tablet 5 mg PO Q4-6H PRN pain #10 tabs 09/04/21 ivermectin 3 mg tablet 11,793 mcg PO QWEEK 2 doses #8 tabs 01/16/23 Allergies Allergy/AdvReac Type Severity Reaction Status Date / Time lorazepam [From Ativan] Allergy Severe Anaphylaxis Verified 09/04/21 16:52 Penicillins Allergy Severe Anaphylaxis Verified 09/04/21 16:52 bacitracin Allergy Unknown Verified 09/04/21 16:51 [From Neosporin ([id number])] neomycin Allergy Unknown Verified 09/04/21 16:51 [From Neosporin ([id number])] polymyxin B Allergy Unknown Verified 09/04/21 16:51 [From Neosporin ([id number])] Review of Systems <Rakel Arriaga PA-C - Last Filed: 01/16/23 16:45> Review of Systems ROS Unobtainable: All systems reviewed & are unremarkable except as noted in HPI and below Patient History <Rakel Arriaga PA-C - Last Filed: 01/16/23 16:45> Medical History Asthma Skin rash Family History Father Cancer Hypertension Grandfather Cancer Grandmother Cancer Mother Age: 65 Hepatitis C Cancer Grandfather Cancer Heart disease Grandmother Diabetes mellitus Hypertension Social History marital status: unmarried,single caregiver/support person: No Smoking Status: Current every day smoker quit status: not considering quitting second hand exposure: Yes alcohol intake: current Smoking Status: Current every day smoker tobacco type: cigarettes alcohol intake frequency: 0-2 drinks per day Substance Use Type: marijuana Exam <Rakel Arriaga PA-C - Last Filed: 01/16/23 16:45> Narrative Exam Narrative: GENERAL: 47 year old patient appears older than stated age. Emotionally lability noted during exam. NEURO: AOx3. HEAD: Atraumatic. Normocephalic. EYES: Pupils equal round and reactive. Extraocular motions intact. No scleral icterus. Right eye with mild surrounding erythema. Morillo lamp exam w/ flouroscein stain negative for corneal abrasion, no fb noted. Visual acuity: L eye 20/40, right eye 20/70, both 20/40. ENT: Nose without bleeding or purulent drainage. Airway patent. RESPIRATORY: no distress or increased work of breathing SKIN: No rash or erythema of visible areas. skin appears dry. no discrete lesions on visible skin. Initial Vital Signs Initial Vital Signs: Vital Signs Temperature 98.5 F 08/03/23 14:19 Pulse Rate 86 01/16/23 14:19 Respiratory Rate 18 01/16/23 14:19 Blood Pressure 123/67 01/16/23 14:19 Pulse Oximetry 98 01/16/23 14:19 Oxygen Delivery Method Room Air 01/16/23 14:19 <Man Elizalde DO - Last Filed: 01/16/23 17:20> Initial Vital Signs Initial Vital Signs: Vital Signs Temperature 98.5 F 01/16/23 14:19 Pulse Rate 86 01/16/23 14:19 Respiratory Rate 18 01/16/23 14:19 Blood Pressure 123/67 01/16/23 14:19 Pulse Oximetry 98 01/16/23 14:19 Oxygen Delivery Method Room Air 01/16/23 14:19 Course <Rakel Arriaga PA-C - Last Filed: 01/16/23 16:45> Orders Ordered: Discontinued Medications Erythromycin (Erythromycin Ophth 1 Gm Oint) 1 applic EYE-RIGHT NOW ONE Stop: 01/16/23 15:19 Last Admin: 01/16/23 15:23 Dose: 1 applic Documented By: DIAMANTE Fluorescein Sodium (Fluorescein 1 Mg Strip) 1 mg EYE-RIGHT NOW ONE Stop: 01/16/23 15:19 Last Admin: 01/16/23 15:23 Dose: 1 mg Documented By: DIAMANTE Ofloxacin (Ofloxacin 0.3% Ophth 5 Ml) 1 drops EYE-RIGHT QID SUZANNA Last Admin: 01/16/23 16:34 Dose: 1 drops Documented By: DIAMANTE Proparacaine HCl (Proparacaine 0.5% Ophth Ana Laura) 1 drops EYE-RIGHT NOW ONE Stop: 01/16/23 15:19 Last Admin: 01/16/23 15:23 Dose: 1 drops Documented By: DIAMANTE Vital Signs Vital signs: Vital Signs - 8 hr 01/16/23 14:19 01/16/23 16:47 Temperature 98.5 F Pulse Rate 86 76 Respiratory Rate 18 12 Blood Pressure 123/67 108/71 Pulse Oximetry 98 100 Oxygen Delivery Method Room Air Room Air <Man Elizalde DO - Last Filed: 01/16/23 17:20> Orders Ordered: Discontinued Medications Erythromycin (Erythromycin Ophth 1 Gm Oint) 1 applic EYE-RIGHT NOW ONE Stop: 01/16/23 15:19 Last Admin: 01/16/23 15:23 Dose: 1 applic Documented By: DIAMANTE Fluorescein Sodium (Fluorescein 1 Mg Strip) 1 mg EYE-RIGHT NOW ONE Stop: 01/16/23 15:19 Last Admin: 01/16/23 15:23 Dose: 1 mg Documented By: DIAMANTE Ofloxacin (Ofloxacin 0.3% Ophth 5 Ml) 1 drops EYE-RIGHT QID SUZANNA Last Admin: 01/16/23 16:34 Dose: 1 drops Documented By: DIAMANTE Proparacaine HCl (Proparacaine 0.5% Ophth Ana Laura) 1 drops EYE-RIGHT NOW ONE Stop: 01/16/23 15:19 Last Admin: 01/16/23 15:23 Dose: 1 drops Documented By: DIAMANTE Vital Signs Vital signs: Vital Signs - 8 hr 01/16/23 14:19 01/16/23 16:47 Temperature 98.5 F Pulse Rate 86 76 Respiratory Rate 18 12 Blood Pressure 123/67 108/71 Pulse Oximetry 98 100 Oxygen Delivery Method Room Air Room Air MDM - Eye Problem <Rakel Arriaga PA-C - Last Filed: 01/16/23 16:45> MDM Narrative Medical decision making narrative: Multiple etiologies for patient's symptoms considered including, but not limited to: allergic vs viral vs bacterial conjunctivitis, corneal abrasion, foreign body, HSV keratitis. Skin concerns may be scabies, vs eczema. Possible also psychiatric component. Prior Charts reviewed: yes in EMR Labs reviewed and interpreted by myself: n/a Patient's symptoms improved over duration of stay with above-stated therapies. Findings and discharge diagnosis discussed with patient/family followed by verbalization of understanding Return precautions discussed with patient/family whom verbalize understanding of diagnosis and plan Discharge Plan Departure Patient Disposition: Home Clinical Impression: Bacterial conjunctivitis of right eye, Skin rash Instructions: DI for Eye Pain Activity Restrictions/Additional Instructions: *You have been diagnosed with eye pain and possible scabies. Please follow-up with an eye doctor of your choice or ophthalmology. You can schedule an appointment with the provider below or a provider of your choice. *What to do: *Please continue to take your regular medications as directed. [X ] New medication prescriptions sent to your pharmacy: [ [facility]] [ ] New medication written as a paper prescription [ ] No new medications given *Please follow up with your primary care provider in 2-3 days, call for an appointment. Let them know you were seen in the Emergency Department and that we ask that you be seen in follow up. We will electronically transmit a record of today's note if your PCP is in our system *If you do not have a primary care provider please contact [facility] Resource line at [phone]. They will ask some questions about your medical history and help get you set up with a doctor in the community. *Return to Emergency Department if you should have any new, worsening or concerning symptoms, such as [fever greater than 101 F, shaking chills, worsening pain, persistent vomiting or other bothersome symptoms] Prescriptions: New ivermectin 3 mg tablet 11,793 mcg PO QWEEK Qty: 8 0RF No Action mupirocin 2 % ointment 1 applic topical TID Qty: 30 0RF Flovent HFA 110 mcg/actuation HFA aerosol inhaler 2 puff INHALATION BID Qty: 12 3RF Rx Instructions: Inhale 2 puffs twice daily after Albuterol for 2 weeks, then decrease to one puff twice daily thereafter triamcinolone acetonide 0.1 % cream 1 applic topical TID Qty: 80 0RF permethrin 5 % cream See Rx Instructions topical ONCE Qty: 120 0RF Rx Instructions: apply as directed today to entire body and head topical once oxycodone 5 mg tablet 5 mg PO Q4-6H PRN (Reason: pain) Qty: 10 0RF ondansetron 4 mg tablet,disintegrating 4 mg PO TID-QID PRN (Reason: nausea and vomiting) Qty: 10 0RF Referrals: Sonia Arriaga MD [Primary Care Provider] - Stand Alone Forms: Patient Portal/API <Man Elizalde, DO - Last Filed: 01/16/23 17:20> Cosign ED Attending Cosignature Attestation: Dr Elizalde Co-Sign Statement: I was available for consultation during this patient's emergency department visit. This chart is signed by myself for administrative purposes only. I did not have direct contact with this patient during this visit. They were seen independently by the APC.
--- NOTE | 2023-01-16 15:13 | PC.NURSE ---
patient complains of corneal ulcer a year ago in right eye, and that went away. Now has eye pain in her right eye. She states that she thinks she has scabies. She relates this issue to brushing a dog and now is having skin issues. She is bothered by it enough that she shaved her head. She is seeing amoeba looking stuff on her skin. She states something is wrong with me, I'm sick He right eye is red but not swollen, her skin is in tact without ulcers, wounds, or noticeable bug bites.
[2023-01-16] MEDS: PROPARACAINE 0.5% OPHTH SOL 1 DROPS EYE-RIGHT (15:23)
[2023-01-16] MEDS: FLUORESCEIN 1 MG STRIP EYE-RIGHT (15:23)
[2023-01-16] MEDS: ERYTHROMYCIN OPHTH 1 GM OINT 1 APPLIC EYE-RIGHT (15:23)
[2023-01-16] MEDS: OFLOXACIN 0.3% OPHTH 5 ML 1 DROPS EYE-RIGHT (16:34)
[2023-01-16 16:47] VITALS: BP 108/71; PULSE 76; RESP 12; O2SAT 100
== END 2023-01-16 16:49 | disposition home or self-care (01) ==
PROVIDERS: Emergency Provider Physician Assistant; PCP Family Medicine
DX: H10.89 Other conjunctivitis (principal); R21 Rash and other nonspecific skin eruption
CPT/HCPCS: 99282; 99283